=== PATIENT | female | born 1965 | race African-American/Black ===

== ENCOUNTER 2017-01-11 17:50 | Emergency (ER) | payer OTHER ==
[~2017-01-11] VITALS: Ht 165.1 cm; Wt 105.0 kg
[2017-01-11 19:25] VITALS: BP 154/89
[2017-01-11] MEDS ORDERED: PREDNISONE 20MG TABLET PO ONE (19:45)
== END 2017-01-11 20:00 | disposition home or self-care (01) ==
LOC: ER 19:58
DX: J45.901 Unspecified asthma with (acute) exacerbation (principal); Z88.5 Allergy status to narcotic agent
CPT/HCPCS: 99283; J7512

== ENCOUNTER 2017-03-08 21:27 | Emergency (ER) | payer OTHER ==
[~2017-03-08] VITALS: Ht 167.6 cm; Wt 99.8 kg
[2017-03-08] MEDS ORDERED: ALBUTEROL (0.083%) 2.5MG/3ML NEB HHN STA (21:55)
[2017-03-08] MEDS ORDERED: PREDNISONE 20MG TABLET PO STA (21:55)
[2017-03-08] MEDS ORDERED: IPRATROPIUM BROMIDE (0.02%) 0.5MG/2.5ML NEB HHN STA (21:55)
[2017-03-08] MEDS ORDERED: SODIUM CHLORIDE 0.9% 1,000 ML IV ONE (21:55)
[2017-03-08] MEDS ORDERED: METHYLPREDNISOLONE SOD SUCC 125 MG/2 ML VIAL IV STA (21:55)
[2017-03-08] MEDS ORDERED: ALBUTEROL (0.5%) 2.5MG/0.5ML NEB HHN ONE (22:02)
[2017-03-08] MEDS ORDERED: IPRATROPIUM BROMIDE (0.02%) 0.5MG/2.5ML NEB ONE (22:03)
[2017-03-08 23:20] VITALS: BP 130/66
== END 2017-03-08 23:20 | disposition home or self-care (01) ==
LOC: ER 21:45
DX: J45.901 Unspecified asthma with (acute) exacerbation (principal); J20.9 Acute bronchitis, unspecified; R03.0 Elevated blood-pressure reading, without diagnosis of hypertension; Z76.0 Encounter for issue of repeat prescription; Z88.5 Allergy status to narcotic agent
CPT/HCPCS: 93005; 94640; 96361; 96374; 99284; J2930; J7030; J7512; J7611

== ENCOUNTER 2017-05-11 20:01 | Emergency (ER) | payer OTHER ==
[~2017-05-11] VITALS: Ht 167.6 cm; Wt 100.0 kg
[2017-05-11 20:07] VITALS: BP 154/66
== END 2017-05-11 21:20 | disposition left against medical advice (07) ==
LOC: ER 20:09
DX: Z53.21 Procedure and treatment not carried out due to patient leaving prior to being seen by health care provider (principal)

== ENCOUNTER 2018-06-30 18:45 | Emergency (ER) | payer OTHER ==
[~2018-06-30] VITALS: Ht 167.6 cm; Wt 100.0 kg
[2018-06-30 19:08] VITALS: BP 140/90
== END 2018-06-30 21:57 | disposition left against medical advice (07) ==
LOC: ER 18:45
DX: Z53.21 Procedure and treatment not carried out due to patient leaving prior to being seen by health care provider (principal); J45.909 Unspecified asthma, uncomplicated

== ENCOUNTER 2020-10-14 20:18 | Emergency (ER) | payer OTHER ==
[~2020-10-14] VITALS: Ht 172.7 cm; Wt 100.0 kg
[2020-10-14] MEDS ORDERED: ALBUTEROL (0.083%) 2.5MG/3ML NEB HHN STA (20:50)
[2020-10-14] MEDS ORDERED: PREDNISONE 20MG TABLET PO STA (20:50)
[2020-10-14] MEDS ORDERED: IPRATROPIUM BROMIDE (0.02%) 0.5MG/2.5ML NEB HHN STA (20:50)
[2020-10-14] MEDS ORDERED: AZITHROMYCIN 500 MG TABLET PO ONE (21:45)
[2020-10-14 21:54] LABS: BASOPHILS % 0.7 % (0.0-2.0); HEMATOCRIT. 37.7 % (36.0-48.0); HEMOGLOBIN. 12.1 g/dL (12.0-16.0); MEAN CORPUSCULAR HEMOGLOBIN 23.8 pg (28.0-32.0); MEAN CORPUSCULAR VOLUME 74.4 fL (81.0-99.0); MEAN PLATELET VOLUME 8.2 fl (7.4-10.4); MONOCYTES % 6.2 % (2.0-8.0); NEUTROPHILS % 70.1 % (40.0-76.0); PLATELET 230 x1000/uL (130-400); RED BLOOD CELL COUNT 5.07 mill/uL (4.2-5.4); RED CELL DISTRIBUTION WIDTH 18.8 % (11.6-14.6)
[2020-10-14 22:00] LABS: CHLORIDE 108 mEq/L (98-107)
[2020-10-14] MEDS ORDERED: P50 MT (22:52)
[2020-10-14] MEDS ORDERED: AZIT250T12 MT (22:52)
[2020-10-14 23:14] VITALS: BP 133/56
== END 2020-10-14 23:15 | disposition home or self-care (01) ==
LOC: ER 20:18
DX: J45.901 Unspecified asthma with (acute) exacerbation (principal); Z88.5 Allergy status to narcotic agent
CPT/HCPCS: 36415; 71045; 80053; 83880; 84484; 85025; 93005; 99285; J7512; Z7610